=== PATIENT | male | born 1945 | race Caucasian/White ===

== ENCOUNTER 2021-03-12 16:31 | Emergency (ER) | payer OTHER, MEDICARE ==
[~2021-03-12] VITALS: Ht 157.5 cm; Wt 69.4 kg
[2021-03-12 17:38] VITALS: BP 142/76
--- NOTE | 2021-03-12 18:27 | NUR ---
Patient received pain medication during ER visit. Patient instructed that pain medication can cause drowsiness and possibly impair his judgement. Patient instructed that he should not drive or operate any machinery that could cause harm to self or others while taking medication. Patient confirmed understanding with verbal confirmation
== END 2021-03-12 18:27 | disposition home or self-care (01) ==
LOC: ED 17:36
DX: R51.9 Headache, unspecified (principal); K08.89 Other specified disorders of teeth and supporting structures; Z88.5 Allergy status to narcotic agent
CPT/HCPCS: 99283